=== PATIENT | male | born 1955 | race Two or more races ===

== ENCOUNTER 2024-04-13 12:14 | Emergency (ER) | payer MEDICARE, MEDICAID ==
[~2024-04-13] VITALS: Ht 182.9 cm; Wt 75.1 kg
[2024-04-13 16:34] VITALS: BP 130/71; PULSE 74; RESP 19; TEMP 98.2; O2SAT 98
== END 2024-04-13 16:38 | disposition home or self-care (01) ==
LOC: ER 12:14
DX: S83.92XA Sprain of unspecified site of left knee, initial encounter (principal); M71.22 Synovial cyst of popliteal space [Baker], left knee; Z88.0 Allergy status to penicillin; W19.XXXA Unspecified fall, initial encounter; Y93.89 Activity, other specified; Y92.89 Other specified places as the place of occurrence of the external cause; Y99.8 Other external cause status
CPT/HCPCS: 73562; 93971